=== PATIENT | male | born 1980 | race Two or more races ===

== ENCOUNTER → 2024-12-07 | Outpatient (CLI) | payer MEDICAID, SELFPAY ==
--- NOTE | 2024-12-07 10:01 | XR_ITS ---
Examination: Hand, right 3 views Technique: Hand AP, oblique, lateral 3 views Date and time of exam: December 07, 2024 1032 hours INDICATIONS: Injury to the hand one month ago with persistent hand fourth digit pain FINDINGS: Old deformities fourth and fifth metacarpals 5 mm fracture off the base of the middle phalanx fourth digit with mild offset Also subluxation at the proximal interphalangeal joint dorsal dislocation of the middle phalanx 4 mm chip fracture off the dorsal base distal phalanx third digit IMPRESSION: 5 mm fracture off the palmar base of the middle phalanx fourth digit Dislocation at the proximal interphalangeal joint fourth digit 4 mm fracture off the dorsal base distal phalanx third digit
--- NOTE | 2024-12-07 10:02 | XR_ITS ---
Examination: Fingers, right hand 3 views Technique: AP, oblique, lateral views fingers right hand 3 views. Exam date and time: December 07, 2024 1032 hours INDICATIONS: Injury to the hand one month ago with hand pain FINDINGS: 5 mm chip fracture palmar base middle phalanx fourth digit with subluxation at the proximal interphalangeal joint fourth digit 4 mm chip fracture dorsal base distal phalanx third digit IMPRESSION: Fracture dislocation proximal interphalangeal joint fourth digit as above Chip fracture dorsal base distal phalanx third digit
== END | disposition home or self-care (01) ==
LOC: CDIM 09:57
DX: S62.632A Displaced fracture of distal phalanx of right middle finger, initial encounter for closed fracture (principal); X58.XXXA Exposure to other specified factors, initial encounter
CPT/HCPCS: 73130; 73140

== ENCOUNTER → 2025-01-14 | Outpatient (CLI) | payer MEDICAID, SELFPAY ==
--- NOTE | 2025-01-14 | XR_ITS ---
Examination: Wrist, right 3 views Technique: Wrist AP, oblique, lateral 3 views Date and time of exam: January 14, 2025 0736 hours INDICATIONS: Injury to the hand beginning 3 months ago, hand pain. FINDINGS: Mild to moderate narrowing radiocarpal and first carpometacarpal joints Old fracture deformities fourth and fifth metacarpals No acute fracture IMPRESSION: No acute fracture
--- NOTE | 2025-01-14 | XR_ITS ---
Examination: Hand, right 3 views Technique: Hand AP, oblique, lateral 3 views Date and time of exam: January 14, 2025 0736 hours COMPARISON: December 07, 2024 FINDINGS: Again noted ununited chip fracture dorsal base distal phalanx third digit. Old fracture deformities fourth and fifth metacarpals Mild juxta-articular bone demineralization IMPRESSION: Again noted ununited chip fracture dorsal base distal phalanx third digit
== END | disposition home or self-care (01) ==
LOC: CDIM 06:55
PROVIDERS: Referring Provider Nurse Practitioner Gerontology; Visit Provider Nurse Practitioner Gerontology
DX: S62.632A Displaced fracture of distal phalanx of right middle finger, initial encounter for closed fracture (principal); X58.XXXA Exposure to other specified factors, initial encounter
CPT/HCPCS: 73110; 73130